=== PATIENT | female | born 2000 | race Caucasian/White ===

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

== ENCOUNTER 2022-09-30 18:02 | Emergency (ER) | payer OTHER, MEDICAID, SELFPAY ==
[2022-09-30 18:16] VITALS: BP 107/65; PULSE 76; RESP 18; TEMP 37; O2SAT 100; BMI 23.8
[2022-09-30 18:49] LABS: Bacteria Urine Moderate (10-30); RBC Urine 0-1/HPF (0-5/HPF); Squamous Epithelial Cell Urine 10-30 /HPF (0-5/HPF); Transitional Epi Cells Urine 1-5/HPF (0-5/HPF); WBC Urine 10-30/HPF (0-5/HPF)
--- NOTE | 2022-09-30 19:03 | ED_ITS ---
HPI - Female Genitourinary <VINNY Hawthorne - Last Filed: 09/30/22 19:52> General Chief complaint: Urogenital-Female Stated complaint: possible UTI/other infection Time Seen by Provider: 09/30/22 18:42 Source: patient Mode of arrival: Ambulatory History of Present Illness HPI Narrative: This is a 21-year-old female with history of in March 2022 who presents to the emergency department with 3 days of dysuria, urinary frequency and endorses abnormal vaginal discharge with a history of bacterial vaginosis. Endorses some vaginal itching, complains of symptoms that have been worsening since yesterday. No other urine cultures available on record here at this hospital, patient states that she has a history of UTIs, denies flank pain, fever, endorses nausea without vomiting, without chills, dizziness or other symptom. Related Data Previous Rx's Medication Instructions Recorded cephalexin 500 mg capsule 500 mg PO BID #10 caps 06/21/21 dicyclomine 10 mg capsule 10 mg PO BID #20 caps 11/19/21 sulfamethoxazole 800 1 tab PO BID #14 tabs 11/19/21 mg-trimethoprim 160 mg tablet (Bactrim DS) cephalexin 500 mg capsule 500 mg PO BID #10 caps 09/30/22 metronidazole 500 mg tablet 500 mg PO BID 7 days #14 tabs 09/30/22 phenazopyridine 100 mg tablet 100 mg PO QPC PRN pain 6 doses #7 09/30/22 (Pyridium) tabs Allergies Allergy/AdvReac Type Severity Reaction Status Date / Time No Known Drug Allergies Allergy Verified 09/30/22 18:29 Review of Systems <VINNY Hawthorne - Last Filed: 09/30/22 19:52> Review of Systems ROS Unobtainable: All systems reviewed & are unremarkable except as noted in HPI and below Patient History <VINNY Hawthorne - Last Filed: 09/30/22 19:52> tobacco type: vaping alcohol intake frequency: holidays/special occasions only Substance Use Type: marijuana Exam <VINNY Hawthorne - Last Filed: 09/30/22 19:52> Narrative Exam Narrative: Reviewed vitals signs and nursing notes. General: cooperative, comfortable, in no acute distress, well groomed HEENT: symmetrical facial expressions, moist mucous membranes GI: abdomen soft, nontender to palpation, nondistended, without masses, rebound tenderness or exquisite tenderness with exam. Pelvic exam, without rash, thick, white vaginal discharge, mild tenderness, suprapubic pressure and tenderness without handbook writer left ovarian tenderness on exam. MSK: moves all extremities, neurovascularly intact, no weakness, normal tone Skin: brisk capillary refill, without pallor or erythema Neuro: normal speech and cognition, A&O x3, ambulatory, clear speech Psych: mental status is grossly normal, congruent mood, normal affect, pleasant and cooperative Initial Vital Signs Initial Vital Signs: Vital Signs Temperature 98.6 F 09/30/22 18:16 Pulse Rate 76 09/30/22 18:16 Respiratory Rate 18 09/30/22 18:16 Blood Pressure 107/65 09/30/22 18:16 Pulse Oximetry 100 09/30/22 18:16 Oxygen Delivery Method 09/30/22 18:16 <Sergio Burris DO - Last Filed: 10/01/22 02:48> Initial Vital Signs Initial Vital Signs: Vital Signs Temperature 98.6 F 09/30/22 18:16 Pulse Rate 76 09/30/22 18:16 Respiratory Rate 18 09/30/22 18:16 Blood Pressure 107/65 09/30/22 18:16 Pulse Oximetry 100 09/30/22 18:16 Oxygen Delivery Method 09/30/22 18:16 Course <VINNY Hawthorne - Last Filed: 09/30/22 19:52> Orders Ordered: ED Orders 09/30/22 18:20 Chlamydia Gonorrhea PCR -URINE Stat Urine Culture Stat Urine Microscopic Stat 09/30/22 18:50 Wet Prep Tric BV Marsha Stat Discontinued Medications Acetaminophen (Acetaminophen 325 Mg Tablet) 650 mg PO NOW ONE Stop: 09/30/22 18:53 Last Admin: 09/30/22 19:10 Dose: 650 mg Documented By: CARMELO Ceftriaxone Sodium (Ceftriaxone 1,000 Mg Vial) 500 mg IM NOW ONE Stop: 09/30/22 18:53 Last Admin: 09/30/22 19:20 Dose: 500 mg Documented By: CARMELO Ibuprofen (Ibuprofen 400 Mg Tablet) 600 mg PO NOW ONE Stop: 09/30/22 18:53 Last Admin: 09/30/22 19:08 Dose: 600 mg Documented By: SB Lidocaine HCl (Lidocaine 1% (Pf) 5 Ml) 2.1 ml INJ NOW ONE Stop: 09/30/22 18:53 Last Admin: 09/30/22 19:21 Dose: Not Given Documented By: SB Metronidazole (Metronidazole 500 Mg Tablet) 500 mg PO NOW ONE Stop: 09/30/22 19:12 Last Admin: 09/30/22 19:20 Dose: 500 mg Documented By: SB Ondansetron HCl (Ondansetron 4 Mg Odt) 4 mg SL NOW ONE Stop: 09/30/22 18:53 Last Admin: 09/30/22 19:08 Dose: 4 mg Documented By: SB Phenazopyridine HCl (Phenazopyridine 100 Mg Tablet) 100 mg PO NOW ONE Stop: 09/30/22 18:53 Last Admin: 09/30/22 19:11 Dose: 100 mg Documented By: CARMELO Vital Signs Vital signs: Vital Signs - 8 hr 09/30/22 18:16 Temperature 98.6 F Pulse Rate 76 Respiratory Rate 18 Blood Pressure 107/65 Pulse Oximetry 100 Oxygen Delivery Method Room Air <Sergio Burris DO - Last Filed: 10/01/22 02:48> Orders Ordered: ED Orders 09/30/22 18:20 Chlamydia Gonorrhea PCR -URINE Stat Urine Culture Stat Urine Microscopic Stat 09/30/22 18:50 Wet Prep Tric BV Marsha Stat Discontinued Medications Acetaminophen (Acetaminophen 325 Mg Tablet) 650 mg PO NOW ONE Stop: 09/30/22 18:53 Last Admin: 09/30/22 19:10 Dose: 650 mg Documented By: CARMELO Ceftriaxone Sodium (Ceftriaxone 1,000 Mg Vial) 500 mg IM NOW ONE Stop: 09/30/22 18:53 Last Admin: 09/30/22 19:20 Dose: 500 mg Documented By: CARMELO Ibuprofen (Ibuprofen 400 Mg Tablet) 600 mg PO NOW ONE Stop: 09/30/22 18:53 Last Admin: 09/30/22 19:08 Dose: 600 mg Documented By: CARMELO Lidocaine HCl (Lidocaine 1% (Pf) 5 Ml) 2.1 ml INJ NOW ONE Stop: 09/30/22 18:53 Last Admin: 09/30/22 19:21 Dose: Not Given Documented By: CARMELO Metronidazole (Metronidazole 500 Mg Tablet) 500 mg PO NOW ONE Stop: 09/30/22 19:12 Last Admin: 09/30/22 19:20 Dose: 500 mg Documented By: CARMELO Ondansetron HCl (Ondansetron 4 Mg Odt) 4 mg SL NOW ONE Stop: 09/30/22 18:53 Last Admin: 09/30/22 19:08 Dose: 4 mg Documented By: CARMELO Phenazopyridine HCl (Phenazopyridine 100 Mg Tablet) 100 mg PO NOW ONE Stop: 09/30/22 18:53 Last Admin: 09/30/22 19:11 Dose: 100 mg Documented By: CARMELO Vital Signs Vital signs: Vital Signs - 8 hr 09/30/22 18:16 Temperature 98.6 F Pulse Rate 76 Respiratory Rate 18 Blood Pressure 107/65 Pulse Oximetry 100 Oxygen Delivery Method Room Air MDM - Female Genitourinary <VINNY Hawthorne - Last Filed: 09/30/22 19:52> Lab Data Lab results narrative: [facility] CLIA ID [id number] [address] [place] [address] RUN DATE: 09/30/22 Specimen Inquiry PAGE 1 RUN TIME: 1910 Name: Laurel Raphael Age/Sex: 21/F Attend Dr: Annie Sheridan Unit#: [id number] : 2000Location: ED Re09/30/22 Disch: Status: REG ER SPEC #: [id number] CELIO: 09/30/22 STATUS: COMP REQ #: [id number] SPDESC: RECD: 09/30/[address]: Annie Sheridan SOURCE: Vaginal ENTR: 09/30/[address] [facility] [address]: FAX TO: ORDERED: Wet Prep Procedure Result Verified Site Wet Prep Tric BV Marsha Final 09/30/22- 1908 White blood cells Few WBCs Clue cells: Few Yeast: None seen Trichomonas: None seen Labs: Lab Results 09/30/22 09/30/22 Range/Units 18:20 18:20 Urine RBC 0-1/hpf (0-5/HPF) Urine WBC 10-30/hpf H (0-5/HPF) Ur Squamous Epith Cells 10-30 /hpf H D (0-5/HPF) Ur Transition Epith Cell 1-5/hpf (0-5/HPF) Urine Bacteria Moderate (10-30) H (None) Ur Chlamydia DNA (PCR) Not detected N gonorrhoeae DNA (PCR) Not detected Point of Care Testing Test Results Negative Urine Dip Bedside Urine Glucose Negative Bedside Urine Bilirubin - Negative Bedside Urine Ketone +/- 5 Urine Specific [place] 1.030 Bedside Urine Occult Blood - Negative Bedside Urine pH 6.0 Bedside Urine Protein - Negative Bedside Urine Urobilinogen - Negative Bedside Urine Nitrite - Negative Bedside Urine Leukocytes + 70 Esterase MDM Narrative Medical decision making narrative: This is a 21-year-old female with history of in March 2022 who presents to the emergency department with 3 days of dysuria, urinary frequency and endorses abnormal vaginal discharge with a history of bacterial vaginosis. Differential diagnoses include, but are not limited to: STI/PID, appendicitis UTI, interstitial cystitis, bacterial vaginosis, retained foreign body, gonorrhea/chlamydia, ovarian torsion, yeast infection. Will follow urine culture results, encouraged tylenol/motrin for pain, hydration, and recheck with primary care provider if not improving within 2 days, and return to the emergency department for worsening symptoms, vomiting, fever and chills. Course of Care: Saw patient, complete a pelvic exam, likely bacterial vaginosis versus UTI or both with STI, she is without flank symptoms, fever, chills, or other systemic symptoms of illness. Awaiting wet mount and gonorrhea chlamydia, will treat with 500 mg of ceftriaxone IM and Pyridium for her symptoms. Patient's symptoms improved over duration of stay with above-stated therapies. Patient's wet prep came back positive for clue cells and WBCs. UA is positive for wbc's, moderate bacteria and patient does not have fever, flank pain, chills, vomiting and her symptoms have improved after medications. MIPS: This encounter doesn't have any diagnosis associated with MIPS criteria. Patient's urine is negative, low suspicion for ectopic Patient's UA is positive for moderate bacteria, WBCs, culture is pending, gonorrhea and chlamydia via PCR is still pending, wet mount is positive for WBCs and clue cells with abnormal vaginal discharge, urinary frequency and urgency with suprapubic pressure with dysuria. Will treat for acute cystitis and bacterial vaginosis, we will call patient if gonorrhea chlamydia is positive. Patient received 500 mg of IM ceftriaxone and will start cephalexin and Pyridium with Flagyl for her symptoms. Patient is well hydrated appearing, without tachycardia, fever, vomiting or other systemic symptom. Encourage patient to follow-up with her PCP for test of cure, stay hydrated, return to the emergency department for any worsening symptoms. Social determinants of health that may impact treatment or disposition: none Vital Signs: I, the ED provider, reviewed the patient?s vital signs, past medical records and encounters if available, and nursing notes. I have spoken with the patient/family and discussed today?s findings whom verbalize understanding. Counseling was provided regarding the diagnosis and prognosis, and specific details were provided for the plan of care. Questions are addressed and there is agreement with the plan and for follow-up. Patient is appropriate for outpatient management. Portions of this chart have been created with [employer] voice recognition software. Occasional wrong word or sound alike substitutions may have occurred due to the inherent limitations of this software. I, VINNY Esqueda, personally performed the services described in the documentation, and it accurately records my words and actions. I collaborated with the ED attending physician for HERMILO level 2, 3, and some level 4s as needed Electronically signed by: VINNY Esqueda <Sergio Burris, DO - Last Filed: 10/01/22 02:48> Lab Data Labs: Lab Results 09/30/22 09/30/22 Range/Units 18:20 18:20 Urine RBC 0-1/hpf (0-5/HPF) Urine WBC 10-30/hpf H (0-5/HPF) Ur Squamous Epith Cells 10-30 /hpf H D (0-5/HPF) Ur Transition Epith Cell 1-5/hpf (0-5/HPF) Urine Bacteria Moderate (10-30) H (None) Ur Chlamydia DNA (PCR) Not detected N gonorrhoeae DNA (PCR) Not detected Point of Care Testing Test Results Negative Urine Dip Bedside Urine Glucose Negative Bedside Urine Bilirubin - Negative Bedside Urine Ketone +/- 5 Urine Specific [place] 1.030 Bedside Urine Occult Blood - Negative Bedside Urine pH 6.0 Bedside Urine Protein - Negative Bedside Urine Urobilinogen - Negative Bedside Urine Nitrite - Negative Bedside Urine Leukocytes + 70 Esterase Discharge Plan Departure Patient Disposition: Home Clinical Impression: Urinary tract infection, Bacterial vaginosis Instructions: Bacterial Vaginosis, DI for Urinary Tract Infection (UTI) Activity Restrictions/Additional Instructions: *You have been diagnosed with bladder infection, bacterial vaginosis, and gonorrhea and chlamydia still pending but we will call you if that is positive and add another antibiotic. Please take 1 tab of the cephalexin when you get to the pharmacy, you may take another Pyridium, that will help you with your bladder pain. Please take all medications as prescribed, follow up with your primary care provider for a test of cure. Stay hydrated, avoid intercourse for at least 3 days, I hope you feel better soon, please return for new or worsening symptoms, vomiting, chills, or other complication. It was a pleasure to meet you, have a nice night. I accidentally called into copies of cephalexin antibiotic, please take only 1 5 day course, Flagyl is for bacterial vaginosis, we will call you if the gonorrhea and chlamydia are positive. *What to do: *Please continue to take your regular medications as directed. x ] New medication prescriptions sent to your pharmacy: [ [facility]] [ ] New medication written as a paper prescription [ ] No new medications given *Please follow up with your primary care provider in 2-3 days, call for an appointment. Let them know you were seen in the Emergency Department and that we asked that you be seen for follow-up. We will electronically transmit a record of today's note if your PCP is in our system *If you do not have a primary care provider please contact [phone] to establish care with one of [facility] primary care providers. *Return to Emergency Department if you should have any new, worsening, or concerning symptoms, such as [fever greater than 101F, chills, worsening pain, persistent vomiting or other bothersome symptoms]. Prescriptions: New phenazopyridine [Pyridium] 100 mg tablet 100 mg PO QPC PRN (Reason: pain) Qty: 7 0RF metronidazole 500 mg tablet 500 mg PO BID 7 Days Qty: 14 0RF cephalexin 500 mg capsule 500 mg PO BID Qty: 10 0RF No Action dicyclomine 10 mg capsule 10 mg PO BID Qty: 20 0RF sulfamethoxazole-trimethoprim [Bactrim DS] 800-160 mg tablet 1 tab PO BID Qty: 14 0RF cephalexin 500 mg capsule 500 mg PO BID Qty: 10 0RF Referrals: Walchenbach,Raegan A, ANIMATION DIRECTOR [Non-Staff] - Stand Alone Forms: Patient Portal/API <Sergio Burris DO - Last Filed: 10/01/22 02:48> Cosign ED Attending Gail Attestation: I was immediately available in the department for consultation. Documentation has been reviewed. I agree with assessment and plan.
[2022-09-30] MEDS: IBUPROFEN 400 MG TABLET 600 MG PO (19:08)
[2022-09-30] MEDS: ONDANSETRON 4 MG ODT SL (19:08)
[2022-09-30] MEDS: ACETAMINOPHEN 325 MG TABLET 650 MG PO (19:10)
[2022-09-30] MEDS: PHENAZOPYRIDINE 100 MG TABLET PO (19:11)
[2022-09-30] MEDS: metroNIDAZOLE 500 MG TABLET PO (19:20)
[2022-09-30] MEDS: cefTRIAXone 1,000 MG VIAL 500 MG IM (19:20)
--- NOTE | 2022-09-30 19:21 | PC.NURSE ---
Addendum entered by Kimberly Mcmanus R.N. 09/30/22 19:42: attempted to call [facility] to rewrite order. [facility] not calling back. Provider aware. Original Note: Lido 1% not available. Admin ceftriaxone with 2% Lido per verbal order of provider.
[2022-09-30 20:08] LABS: Urine N gonorrhoeae NOT DETECTED
[2022-09-30 20:16] LABS: Urine Chlamydia NOT DETECTED
== END 2022-09-30 19:41 | disposition home or self-care (01) ==
PROVIDERS: Emergency Medicine; Emergency Provider Nurse Practitioner Critical Care Medicine
DX: N39.0 Urinary tract infection, site not specified (principal); N76.0 Acute vaginitis
CPT/HCPCS: 81003; 81015; 81025; 87086; 87147; 87210; 87491; 87591; 96372; 99283; J0696

== ENCOUNTER 2022-10-20 22:12 | Emergency (ER) | payer OTHER, MEDICAID, SELFPAY ==
[2022-10-20 22:22] VITALS: BP 122/60; PULSE 103; RESP 16; TEMP 37.3; O2SAT 98; BMI 24.3
[2022-10-20 22:55] LABS: Bacteria Urine Occasional (0-1); RBC Urine 0-1/HPF (0-5/HPF); Squamous Epithelial Cell Urine 1-5 /HPF (0-5/HPF); WBC Urine 10-30/HPF (0-5/HPF)
[2022-10-20 22:56] LABS: Culture Indicated Urine Specimen Cultured
--- NOTE | 2022-10-20 23:28 | ED.GENADULT ---
HPI - General Adult General Chief complaint: Urogenital-Female Stated complaint: UTI Time Seen by Provider: 10/20/22 22:36 Source: patient Mode of arrival: Ambulatory Limitations: no limitations History of Present Illness HPI narrative: Patient is a 21-year-old female who was seen here in the emergency department a couple days ago for UTI like symptoms. She was treated presumptively for gonorrhea and chlamydia. She was also treated for bacterial vaginosis. She was given antibiotics for urinary tract infection as well. She stated that her symptoms did improve but not completely resolve. Since her visit here in the emergency department she was seen by her primary doctor's office. She developed a yeast infection and was given medications for this. She is since completed all antibiotics and treatment for yeast infection. She returns to emergency department today with increased urgency, frequency and lower back discomfort. No fevers. No vomiting. No rashes. No vaginal bleeding. She did have sexual intercourse last week. She stated that she felt like her symptoms improved but not completely resolved and have been worsening. She has had issues with multiple urinary tract infections in the past. She is not seen urology. Related Data Previous Rx's Medication Instructions Recorded cephalexin 500 mg capsule 500 mg PO BID #10 caps 06/21/21 dicyclomine 10 mg capsule 10 mg PO BID #20 caps 11/19/21 sulfamethoxazole 800 1 tab PO BID #14 tabs 11/19/21 mg-trimethoprim 160 mg tablet (Bactrim DS) cephalexin 500 mg capsule 500 mg PO BID #10 caps 09/30/22 phenazopyridine 100 mg tablet 100 mg PO QPC PRN pain 6 doses #7 09/30/22 (Pyridium) tabs fluconazole 150 mg tablet 150 mg PO DAILY #2 tabs 10/21/22 (Diflucan) phenazopyridine 100 mg tablet 100 mg PO TID PRN pain 6 doses #6 10/21/22 (Pyridium) tabs sulfamethoxazole 800 1 tab PO BID 3 days #6 tabs 10/21/22 mg-trimethoprim 160 mg tablet (Bactrim DS) Allergies Allergy/AdvReac Type Severity Reaction Status Date / Time No Known Drug Allergies Allergy Verified 09/30/22 18:29 Review of Systems Gastrointestinal Gastrointestinal: Reports system reviewed and no additional complaints, except as documented Genitourinary Genitourinary: Reports system reviewed and no additional complaints, except as documented Musculoskeletal Musculoskeletal: Reports system reviewed and no additional complaints, except as documented Hematologic/Lymphatic On Anticoagulants: No Patient History Social History Smoking Status: Current some day smoker Smoking Status: Current some day smoker tobacco type: vaping alcohol intake frequency: holidays/special occasions only Substance Use Type: marijuana Exam Initial Vital Signs Initial Vital Signs: Vital Signs Temperature 99.1 F 10/20/22 22:22 Pulse Rate 103 H 10/20/22 22:22 Respiratory Rate 16 10/20/22 22:22 Blood Pressure 122/60 10/20/22 22:22 Pulse Oximetry 98 10/20/22 22:22 Oxygen Delivery Method 10/20/22 22:22 HENMT Head: normal to inspection and normocephalic Resp Effort & Inspection: normal respiratory effort Cardio Rate: regular rate GI Inspection: non-distended Neuro General: patient alert, patient awake, patient oriented x3 and moves all extremities Course Orders Ordered: ED Orders 10/20/22 22:35 Chlamydia Gonorrhea PCR -URINE Stat Urine Culture Stat Urine Microscopic Stat Discontinued Medications Phenazopyridine HCl (Phenazopyridine 100 Mg Tablet) 100 mg PO NOW ONE Stop: 10/20/22 23:30 Last Admin: 10/20/22 23:40 Dose: 100 mg Documented By: BOBBY Trimethoprim/Sulfamethoxazole (Trimeth/Sulfa 160/800 (Ds) Tablet) 1 tab PO NOW ONE Stop: 10/20/22 23:30 Last Admin: 10/20/22 23:40 Dose: 1 tab Documented By: BOBBY Vital Signs Vital signs: Vital Signs - 8 hr 10/20/22 22:22 10/21/22 00:19 Temperature 99.1 F 98.4 F Pulse Rate 103 H 91 H Respiratory Rate 16 18 Blood Pressure 122/60 114/63 Pulse Oximetry 98 97 Oxygen Delivery Method Room Air Room Air Medical Decision Making Differential Diagnosis Differential Diagnosis: UTI, pyelo, STI, bacterial vaginosis, cystitis, yeast infection and others Medical Records Medical records reviewed: Yes I reviewed the patient's medical records. Lab Data Lab results reviewed: Yes I reviewed the patient's lab results. Labs: Lab Results 10/20/22 10/20/22 Range/Units 22:35 22:35 Urine RBC 0-1/hpf (0-5/HPF) Urine WBC 10-30/hpf H (0-5/HPF) Ur Squamous Epith Cells 1-5 /hpf D (0-5/HPF) Urine Bacteria Occasional (0-1) (None) Ur Culture Indicated? Specimen cultured Ur Chlamydia DNA (PCR) Not detected N gonorrhoeae DNA (PCR) Not detected Point of Care Testing Test Results Negative Urine Dip Bedside Urine Glucose Negative Bedside Urine Bilirubin - Negative Bedside Urine Ketone - Negative Urine Specific [place] 1.03 Bedside Urine Occult Blood - Negative Bedside Urine pH 6.0 Bedside Urine Protein +/- 15 Bedside Urine Urobilinogen - Negative Bedside Urine Nitrite - Negative Bedside Urine Leukocytes + 70 Esterase Point of care testing: Point of Care Testing Test Results Negative Urine Dip Bedside Urine Glucose Negative Bedside Urine Bilirubin - Negative Bedside Urine Ketone - Negative Urine Specific [place] 1.03 Bedside Urine Occult Blood - Negative Bedside Urine pH 6.0 Bedside Urine Protein +/- 15 Bedside Urine Urobilinogen - Negative Bedside Urine Nitrite - Negative Bedside Urine Leukocytes + 70 Esterase MDM Narrative Medical decision making narrative: Patient does have symptoms today that are consistent with a urinary tract infection. Physical exam is not consistent with pyelonephritis. For review of the culture from her last visit shows group B strep. Her gonorrhea and chlamydia today are negative. She did have bacterial vaginosis during her prior visit but this has been treated. I would a discussion with the patient regarding her symptoms. We did discuss her prior urine culture showing a bacteria that could potentially just be normal anika not necessarily related to an infection. She states that this type of situation has happened to her in the past where she is needed multiple courses of antibiotics before her symptoms improved. A culture was obtained today. The patient realizes that this is pending at the time of discharge and we will contact her if we need to change any antibiotics. Since she was on Keflex during her last visit we will switch her to Bactrim today. She was given a dose here in the ER and was given prescription for Bactrim. This was printed as she is going out of town tomorrow. She was also given a prescription for Pyridium. This has worked for her in the past. I also gave her a prescription for Diflucan that she can take if she starts to have yeast infection symptoms. I did advise her that she should talk with her primary doctor about potentially getting a referral to see Urology given her symptoms. She was given return precautions. She expressed understanding and agreement with this plan. Discharge Plan Departure Patient Disposition: Home Clinical Impression: Urinary tract infection Instructions: DI for Urinary Tract Infection (UTI) Activity Restrictions/Additional Instructions: A urine culture was pending today at the time of your discharge. If for some reason we need to change antibiotics we will contact you. Your having frequent urinary tract infections. I would recommend that you talk with your primary doctor about the indications for referral to see Urology. Use the Diflucan as directed as well. Return to the emergency department for new symptoms. Prescriptions: New phenazopyridine [Pyridium] 100 mg tablet 100 mg PO TID PRN (Reason: pain) Qty: 6 0RF sulfamethoxazole-trimethoprim [Bactrim DS] 800-160 mg tablet 1 tab PO BID 3 Days Qty: 6 0RF fluconazole [Diflucan] 150 mg tablet 150 mg PO DAILY Qty: 2 0RF Rx Instructions: use as directed No Action dicyclomine 10 mg capsule 10 mg PO BID Qty: 20 0RF sulfamethoxazole-trimethoprim [Bactrim DS] 800-160 mg tablet 1 tab PO BID Qty: 14 0RF phenazopyridine [Pyridium] 100 mg tablet 100 mg PO QPC PRN (Reason: pain) Qty: 7 0RF cephalexin 500 mg capsule 500 mg PO BID Qty: 10 0RF cephalexin 500 mg capsule 500 mg PO BID Qty: 10 0RF Stand Alone Forms: Patient Portal/API
[2022-10-20] MEDS: TRIMETH/SULFA 160/800 (DS) TABLET 1 TAB PO (23:40)
[2022-10-20] MEDS: PHENAZOPYRIDINE 100 MG TABLET PO (23:40)
[2022-10-21 00:15] LABS: Urine N gonorrhoeae NOT DETECTED
[2022-10-21 00:19] VITALS: BP 114/63; PULSE 91; RESP 18; TEMP 36.9; O2SAT 97
[2022-10-21 00:19] LABS: Urine Chlamydia NOT DETECTED
== END 2022-10-21 00:29 | disposition home or self-care (01) ==
PROVIDERS: Emergency Provider Emergency Medicine
DX: N39.0 Urinary tract infection, site not specified (principal)
CPT/HCPCS: 81003; 81015; 81025; 87086; 87491; 87591; 99283

== ENCOUNTER 2022-12-07 13:40 | Emergency (ER) | payer OTHER, MEDICAID, SELFPAY ==
[2022-12-07 13:53] VITALS: BP 130/59; PULSE 76; RESP 18; TEMP 37.2; O2SAT 99; BMI 23.6
[2022-12-07 14:20] LABS: RBC Urine None Seen (0-5/HPF); Squamous Epithelial Cell Urine 10-30 /HPF (0-5/HPF); WBC Urine None Seen (0-5/HPF)
[2022-12-07 14:21] LABS: Bacteria Urine None Seen; Culture Indicated Urine Cult Not Indicated
--- NOTE | 2022-12-07 14:38 | ED_ITS ---
HPI - Female Genitourinary <VINNY Hawthorne - Last Filed: 12/07/22 16:31> General Chief complaint: Urogenital-Female Stated complaint: pelvic inflammatory disease pain,nausea Time Seen by Provider: 12/07/22 14:27 Source: patient Mode of arrival: Ambulatory History of Present Illness HPI Narrative: This is a 22-year-old female with history x1, recent chlamydia with treatment on doxycycline in October 2022 who comes in complaining of right inguinal pain, abnormal vaginal discharge that is reddish brown colored, for the last few days. States that she has had vomiting x1, nausea, without back pain, without urinary frequency or urgency. She is currently on medications. States that she followed up with her primary care provider had a tests of cure after her chlamydia treatment and this was negative. She is concerned about PID. She states her last menstrual cycle was October 11 but states that she is had intermittent bleeding on and off up to 3 times a month over the last 2 months. She is not currently on control. Related Data Previous Rx's Medication Instructions Recorded metronidazole 500 mg tablet 500 mg PO BID 8 days #16 tabs 12/07/22 omeprazole 40 mg capsule,delayed 40 mg PO DAILY #30 caps 12/07/22 release Allergies Allergy/AdvReac Type Severity Reaction Status Date / Time No Known Drug Allergies Allergy Verified 12/07/22 13:57 Review of Systems <VINNY Hawthorne - Last Filed: 12/07/22 16:31> Review of Systems ROS Unobtainable: All systems reviewed & are unremarkable except as noted in HPI and below Patient History <VINNY Hawthorne - Last Filed: 12/07/22 16:31> tobacco type: vaping alcohol intake frequency: holidays/special occasions only Substance Use Type: marijuana Exam <VINNY Hawthorne - Last Filed: 12/07/22 16:31> Narrative Exam Narrative: Reviewed vitals signs and nursing notes. General: cooperative, in no acute distress, well groomed HEENT: symmetrical facial expressions, moist mucous membranes, neck is supple CV: regular rate and rhythm, warm extremities Respiratory: Without abnormal breath sounds, normal work of breathing, without tachypnea, hypoxia. GI: abdomen soft, nontender to palpation in all quadrants, nondistended, without masses, rebound tenderness or CVA tenderness bilaterally. 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, vaginal discharge is reddish brown in color, appears to be menstr ual related, no tenderness over left or right ovaries, no adnexal tenderness on exam, no external wounds or erythema MSK: moves all extremities, neurovascularly intact, no weakness, normal tone Skin: brisk capillary refill, without rash or wound Neuro: normal speech and cognition, A&O x3, ambulatory, clear speech Initial Vital Signs Initial Vital Signs: Vital Signs Temperature 98.9 F 12/07/22 13:53 Pulse Rate 76 12/07/22 13:53 Respiratory Rate 18 12/07/22 13:53 Blood Pressure 130/59 L 12/07/22 13:53 Pulse Oximetry 99 12/07/22 13:53 Oxygen Delivery Method Room Air 12/07/22 13:53 <Liza Bean DO - Last Filed: 12/09/22 12:41> Initial Vital Signs Initial Vital Signs: Vital Signs Temperature 98.9 F 12/07/22 13:53 Pulse Rate 76 12/07/22 13:53 Respiratory Rate 18 12/07/22 13:53 Blood Pressure 130/59 L 12/07/22 13:53 Pulse Oximetry 99 12/07/22 13:53 Oxygen Delivery Method Room Air 12/07/22 13:53 Course <VINNY Hawthorne - Last Filed: 12/07/22 16:31> Orders Ordered: Discontinued Medications Ketorolac Tromethamine (Ketorolac 30 Mg/Ml Vial) 15 mg IM NOW ONE Stop: 12/07/22 16:26 Last Admin: 12/07/22 16:33 Dose: Not Given Documented By: AT Metronidazole (Metronidazole 500 Mg Tablet) 500 mg PO NOW ONE Stop: 12/07/22 15:09 Last Admin: 12/07/22 16:34 Dose: 500 mg Documented By: AT Ondansetron HCl (Ondansetron 4 Mg Odt) 4 mg SL NOW ONE Stop: 12/07/22 16:20 Last Admin: 12/07/22 16:33 Dose: Not Given Documented By: AT Pantoprazole Sodium (Pantoprazole Dr 20 Mg Tablet) 20 mg PO NOW ONE Stop: 12/07/22 16:26 Last Admin: 12/07/22 16:33 Dose: 20 mg Documented By: AT Vital Signs Vital signs: Vital Signs - 8 hr 12/07/22 13:53 Temperature 98.9 F Pulse Rate 76 Respiratory Rate 18 Blood Pressure 130/59 L Pulse Oximetry 99 Oxygen Delivery Method Room Air <Liza Bean DO - Last Filed: 12/09/22 12:41> Orders Ordered: Discontinued Medications Ketorolac Tromethamine (Ketorolac 30 Mg/Ml Vial) 15 mg IM NOW ONE Stop: 12/07/22 16:26 Last Admin: 12/07/22 16:33 Dose: Not Given Documented By: AT Metronidazole (Metronidazole 500 Mg Tablet) 500 mg PO NOW ONE Stop: 12/07/22 15:09 Last Admin: 12/07/22 16:34 Dose: 500 mg Documented By: AT Ondansetron HCl (Ondansetron 4 Mg Odt) 4 mg SL NOW ONE Stop: 12/07/22 16:20 Last Admin: 12/07/22 16:33 Dose: Not Given Documented By: AT Pantoprazole Sodium (Pantoprazole Dr 20 Mg Tablet) 20 mg PO NOW ONE Stop: 12/07/22 16:26 Last Admin: 12/07/22 16:33 Dose: 20 mg Documented By: AT Vital Signs Vital signs: Vital Signs - 8 hr 12/07/22 13:53 Temperature 98.9 F Pulse Rate 76 Respiratory Rate 18 Blood Pressure 130/59 L Pulse Oximetry 99 Oxygen Delivery Method Room Air MDM - Female Genitourinary <VINNY Hawthorne - Last Filed: 12/07/22 16:31> Lab Data Lab results narrative: [facility] CLIA ID [id number] [address] [place] [address], [id number] RUN DATE: 12/07/22 Specimen Inquiry PAGE 1 RUN TIME: 8546 Name: Donavon,Laurel Sotelo Age/Sex: 22/F Attend Dr: Annie Sheridan Unit#: [id number] : 2000Location: ED Re12/07/22 Disch: Status: REG ER SPEC #: [id number] CELIO: 12/07/22-1430 STATUS: COMP REQ #: [id number] SPDESC: RECD: 12/07/22-[address]: Annie Sheridan SOURCE: Vaginal ENTR: 12/07/22-[address]: Raegan Small FAX TO: ORDERED: Wet Prep Procedure Result Verified Site Wet Prep Tric BV Marsha Final 12/07/22- 1506 White blood cells Occasional WBC seen Clue cells: None seen Yeast: None seen Trichomonas: None seen Labs: Lab Results 12/07/22 12/07/22 Range/Units 14:00 14:00 Urine RBC None seen (0-5/HPF) Urine WBC None seen (0-5/HPF) Ur Squamous Epith Cells 10-30 /hpf H D (0-5/HPF) Urine Bacteria None seen (None) Ur Culture Indicated? Cult not indicated Ur Chlamydia DNA (PCR) Not detected N gonorrhoeae DNA (PCR) Not detected Point of Care Testing Test Results Negative Urine Dip Bedside Urine Glucose Negative Bedside Urine Bilirubin - Negative Bedside Urine Ketone - Negative Urine Specific Bode 1.010 Bedside Urine Occult Blood +++ Bedside Urine pH 7 Bedside Urine Urobilinogen - Negative Bedside Urine Nitrite - Negative Bedside Urine Leukocytes - Negative Esterase MDM Narrative Medical decision making narrative: Chief Complaint: Independent historian: Patient Differential diagnoses include but are not limited to: Menstrual bleeding, acute cystitis, pyelonephritis, dehydration, vaginitis, lumbar radiculopathy, painful bladder syndrome, urethritis, diverticulitis/colitis, perforated viscus, ovarian cyst/torsion, ectopic , STI including chlamydia/gonorrhea I have independently reviewed the patient's vital signs and nursing notes as well as prior records if available. Pertinent lab findings reviewed: Wet mount is positive for wbc's Gonorrhea and chlamydia Patient's urine microscopy shows moderate amount of vaginal discharge contaminant, no RBCs or WBCs, pending urine gonorrhea/chlamydia/wet mount Urine gonorrhea and chlamydia PCR is negative, wet mount shows WBCs. Will treat for bacterial vaginosis, patient complains of epigastric pain with heartburn, indigestion, and has a history of smoking marijuana. Discussed this could be G ERD, gastric ulcer, gastritis. Encouraged her to start taking omeprazole daily, use Tums and or Pepto-Bismol as needed, avoid smoking, avoid ibuprofen, avoid spicy and acidic foods and follow up with primary care if this is ongoing. She was prescribed omeprazole 40 mg daily for this. She was also prescribed Flagyl 500 mg b.i.d. x8 days for vaginitis. Social considerations that may affect disposition: none Questions are addressed and there is agreement with the plan and for follow-up. Patient is appropriate for outpatient management. MIPS: This encounter doesn't have any diagnosis' associated with MIPS criteria. <Liza Bean, DO - Last Filed: 12/09/22 12:41> Lab Data Labs: Lab Results 12/07/22 12/07/22 Range/Units 14:00 14:00 Urine RBC None seen (0-5/HPF) Urine WBC None seen (0-5/HPF) Ur Squamous Epith Cells 10-30 /hpf H D (0-5/HPF) Urine Bacteria None seen (None) Ur Culture Indicated? Cult not indicated Ur Chlamydia DNA (PCR) Not detected N gonorrhoeae DNA (PCR) Not detected Point of Care Testing Test Results Negative Urine Dip Bedside Urine Glucose Negative Bedside Urine Bilirubin - Negative Bedside Urine Ketone - Negative Urine Specific Bode 1.010 Bedside Urine Occult Blood +++ Bedside Urine pH 7 Bedside Urine Urobilinogen - Negative Bedside Urine Nitrite - Negative Bedside Urine Leukocytes - Negative Esterase Discharge Plan Departure Patient Disposition: Home Clinical Impression: Bacterial vaginosis Instructions: Bacterial Vaginosis, DI for Epigastric Pain, GERD Diet Activity Restrictions/Additional Instructions: *You have been diagnosed with epigastric pain which is most likely related to either gastric ulcer, gastritis, or GERD. Your lower abdominal pain is most likely related to bacterial vaginosis, your wet mount was negative for Trichomonas, the gonorrhea and chlamydia test was negative. Does not appear that you have a urinary tract infection today. Please start taking omeprazole daily, it is okay to take Tums or Pepto-Bismol as needed, avoid ibuprofen on an empty stomach. Please stay hydrated, avoid smoking and acidic, spicy, caffeinated foods. Follow up with your regular doctor for recheck. Your test was negative today. I hope you start feeling better soon. *What to do: *Please continue to take your regular medications as directed. [ x] New medication prescriptions sent to your pharmacy: [ [facility] [place]] [ ] New medication written as a paper prescription [ ] No new medications given *Please follow up with your primary care provider in 2-3 days, call for an appointment. Let them know you were seen in the Emergency Department and that we asked that you be seen for follow-up. We will electronically transmit a record of today's note if your PCP is in our system *If you do not have a primary care provider please contact [phone] to establish care with one of the [facility] primary care providers. *Return to Emergency Department if you should have any new, worsening, or concerning symptoms, such as [fever greater than 101F, chills, worsening pain, persistent vomiting or other bothersome symptoms]. Prescriptions: New omeprazole 40 mg capsule,delayed release(DR/EC) 40 mg PO DAILY Qty: 30 0RF metronidazole 500 mg tablet 500 mg PO BID 8 Days Qty: 16 0RF Referrals: Raegan Small ARNP [Primary Care Provider] - Stand Alone Forms: Patient Portal/API <Liza Bean DO - Last Filed: 12/09/22 12:41> Cosign ED Attending Cosbernadetteature Attestation: I was immediately available in the department for consultation. Supervised by Liza Bean DO
[2022-12-07 16:26] LABS: Urine Chlamydia NOT DETECTED; Urine N gonorrhoeae NOT DETECTED
[2022-12-07] MEDS: PANTOPRAZOLE DR 20 MG TABLET PO (16:33)
[2022-12-07] MEDS: metroNIDAZOLE 500 MG TABLET PO (16:34)
[2022-12-07 16:38] VITALS: BP 97/71; PULSE 67; RESP 18; O2SAT 99
== END 2022-12-07 16:38 | disposition home or self-care (01) ==
PROVIDERS: Emergency Medicine; Emergency Provider Nurse Practitioner Critical Care Medicine; PCP Nurse Practitioner Family
DX: N76.0 Acute vaginitis (principal)
CPT/HCPCS: 81003; 81015; 81025; 87210; 87491; 87591; 96372; 99283

== ENCOUNTER 2022-12-16 14:04 | Emergency (ER) | payer OTHER, MEDICAID, SELFPAY ==
[2022-12-16 14:17] VITALS: BP 113/72; PULSE 99; RESP 16; TEMP 37.3; O2SAT 98; BMI 23.8
[2022-12-16 14:20] VITALS: PULSE 94; O2SAT 99
--- NOTE | 2022-12-16 14:28 | PC.NURSE ---
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 for the last week she has been feeling sick with intermittent periods of feeling better. c/o pain in her back, stomach, down her legs, SOB its hard to breathe, weakness, dizzy upon standing, and chills. denies vomiting, cough, runny nose and fevers. able to tolerate things by mouth but been eating less since she doesnt feel good. pt states she has been taking over the counter wal-dryl and zofran for her nausea.
[2022-12-16 14:30] VITALS: BP 106/63; PULSE 87; O2SAT 99
--- NOTE | 2022-12-16 14:47 | ED.NAVMDI ---
HPI - Nausea/Vomiting/Diarrhea <Wilda King PA-C - Last Filed: 12/18/22 10:41> General Chief complaint: Nausea/Vomiting/Diarrhea Stated complaint: body aches, nausea, diarrhea,SOBworsening last day Time Seen by Provider: 12/16/22 14:17 Mode of arrival: Ambulatory History of Present Illness HPI Narrative: Patient is a 22-year-old female presenting for evaluation of onset of abdominal and back pain starting last night and worsening today. She was treated in [place] for PID back in October. 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 She was also seen in the emergency department on December 07 and treated for bacterial vaginosis and reflux. She says she is continuing her metronidazole dose when she felt some back pain and generalized abdominal pain starting yesterday. She says that this morning when she woke, she felt nausea and generalized abdominal pain. She says that she had diarrhea 6 times today which she describes as watery. She denies any upper respiratory symptoms such as sore throat, runny nose, headache or cough. She denies fever, but does report some chills and hot flashes. She reports taking 4 mg of her dad Zofran before 10:00 a.m.. today. She says the pain is in her upper belly in her upper back moving down to her lower back. She denies any pain with urination or frequency. She says she is not certain when her last menstrual period was she denies using control, but denies sexual activity recently. She reports some occasional stabbing pains around her urethra which is unrelated to when she urinates and only occasionally occur. Of note, she denies abdominal operations other than a groin hernia repair when she was a child. Related Data Previous Rx's Medication Instructions Recorded omeprazole 40 mg capsule,delayed 40 mg PO DAILY #30 caps 12/07/22 release naproxen 250 mg tablet 250 mg PO BID PRN pain #10 tabs 12/16/22 ondansetron 4 mg disintegrating 4 mg PO Q8H PRN nausea and 12/16/22 tablet vomiting #12 tabs Allergies Allergy/AdvReac Type Severity Reaction Status Date / Time No Known Drug Allergies Allergy Verified 12/07/22 13:57 Review of Systems <Wilda King PA-C - Last Filed: 12/18/22 10:41> Review of Systems Narrative: Per HPI Patient History <Wilda King PA-C - Last Filed: 12/18/22 10:41> Social History Smoking Status: Current some day smoker Smoking Status: Current some day smoker tobacco type: vaping alcohol intake frequency: holidays/special occasions only Substance Use Type: marijuana Exam <Wilda King PA-C - Last Filed: 12/18/22 10:41> Narrative Exam Narrative: GENERAL: 22 year old patient appears stated age. Well-developed patient, in no acute distress. HEAD: Atraumatic. Normocephalic. EYES: Pupils equal round and reactive. Extraocular motions intact. No scleral icterus. No injection or drainage. ENT: Nose without bleeding, purulent drainage. Throat without erythema, tonsillar hypertrophy or exudate. Airway patent. TMs pearly fitch with good COL, Nontender to mastoid, tragus or pinna palpation. NECK: Trachea midline. Non tender. No cervical lymphadenopathy CARDIOVASCULAR: Regular rate and rhythm without murmurs, gallops, or rubs. RESPIRATORY: Clear to auscultation. Breath sounds equal bilaterally. No wheezes, rales, or rhonchi. GASTROINTESTINAL: Bowel sounds x4, tympanic to percussion x4 Abdomen soft, acute tenderness throughout all 4 quadrants, no CVA tenderness EXTREMITIES: No edema or joint tenderness. BACK: Nontender without deformity or crepitance. No flank tenderness. Tenderness over the lower back NEURO: AOx3. SKIN: No rash or erythema of visible areas Initial Vital Signs Initial Vital Signs: Vital Signs Temperature 99.2 F 12/16/22 14:17 Pulse Rate 99 H 12/16/22 14:17 Respiratory Rate 16 12/16/22 14:17 Blood Pressure 113/72 12/16/22 14:17 Pulse Oximetry 98 12/16/22 14:17 Oxygen Delivery Method Room Air 12/16/22 14:17 <Mily Smith DO - Last Filed: 12/20/22 07:02> Initial Vital Signs Initial Vital Signs: Vital Signs Temperature 99.2 F 12/16/22 14:17 Pulse Rate 99 H 12/16/22 14:17 Respiratory Rate 16 12/16/22 14:17 Blood Pressure 113/72 12/16/22 14:17 Pulse Oximetry 98 12/16/22 14:17 Oxygen Delivery Method Room Air 12/16/22 14:17 Course <Wilda King PA-C - Last Filed: 12/18/22 10:41> Orders Ordered: Discontinued Medications Sodium Chloride (Normal Saline 0.9%) 1,000 mls @ 1,000 mls/hr IV BOLUS ONE Stop: 12/16/22 16:04 Last Infusion: 12/16/22 17:17 Dose: 0 mls/hr Documented By: Admin: 12/16/22 15:46 Dose: 1,000 mls/hr Documented By: CHANEL Ketorolac Tromethamine (Ketorolac 30 Mg/Ml Vial) 15 mg IV NOW ONE Stop: 12/16/22 15:27 Last Admin: 12/16/22 15:46 Dose: 15 mg Documented By: CHANEL Ondansetron HCl (Ondansetron 4 Mg Odt) 4 mg SL NOW ONE Stop: 12/16/22 14:52 Last Admin: 12/16/22 14:59 Dose: 4 mg Documented By: NR Vital Signs Vital signs: Vital Signs - 8 hr 12/16/22 14:17 12/16/22 14:20 12/16/22 14:30 Temperature 99.2 F Pulse Rate 99 H 94 H Respiratory Rate 16 Blood Pressure 113/72 106/63 Pulse Oximetry 98 99 Oxygen Delivery Method Room Air 12/16/22 14:30 12/16/22 15:00 12/16/22 15:30 Temperature Pulse Rate 87 92 H Respiratory Rate Blood Pressure Pulse Oximetry 99 98 100 Oxygen Delivery Method 12/16/22 16:56 12/16/22 16:56 Temperature Pulse Rate 85 Respiratory Rate Blood Pressure 107/58 L Pulse Oximetry 100 Oxygen Delivery Method <Mily Smith DO - Last Filed: 12/20/22 07:02> Orders Ordered: Discontinued Medications Sodium Chloride (Normal Saline 0.9%) 1,000 mls @ 1,000 mls/hr IV BOLUS ONE Stop: 12/16/22 16:04 Last Infusion: 12/16/22 17:17 Dose: 0 mls/hr Documented By: [facility] Admin: 12/16/22 15:46 Dose: 1,000 mls/hr Documented By: CTS Ketorolac Tromethamine (Ketorolac 30 Mg/Ml Vial) 15 mg IV NOW ONE Stop: 12/16/22 15:27 Last Admin: 12/16/22 15:46 Dose: 15 mg Documented By: CHANEL Ondansetron HCl (Ondansetron 4 Mg Odt) 4 mg SL NOW ONE Stop: 12/16/22 14:52 Last Admin: 12/16/22 14:59 Dose: 4 mg Documented By: NR Vital Signs Vital signs: Vital Signs - 8 hr 12/16/22 14:17 12/16/22 14:20 12/16/22 14:30 Temperature 99.2 F Pulse Rate 99 H 94 H Respiratory Rate 16 Blood Pressure 113/72 106/63 Pulse Oximetry 98 99 Oxygen Delivery Method Room Air 12/16/22 14:30 12/16/22 15:00 12/16/22 15:30 Temperature Pulse Rate 87 92 H Respiratory Rate Blood Pressure Pulse Oximetry 99 98 100 Oxygen Delivery Method 12/16/22 16:56 12/16/22 16:56 Temperature Pulse Rate 85 Respiratory Rate Blood Pressure 107/58 L Pulse Oximetry 100 Oxygen Delivery Method MDM - Nausea/Vomiting/Diarrhea <Wilda King PA-C - Last Filed: 12/18/22 10:41> Lab Data 12/16/22 15:27 12/16/22 15:27 Labs: Lab Results 12/16/22 12/16/22 12/16/22 Range/Units 15:08 15:27 15:27 WBC 4.9 (4.5-11.0) X10^3/uL RBC 4.68 (4.0-5.2) X10^6/uL Hgb 15.0 (12.0-16.0) g/dL Hct 42.9 (36-46) % MCV 91.8 (80-100) fL MCH 32.0 (26-34) PG MCHC 34.8 (30-36) % RDW 13.2 (11.6-14.8) % Plt Count 202 (150-400) X10^3/uL Neut % (Auto) 81.9 H (50-75) % Lymph % (Auto) 7.0 L (25-40) % Warren % (Auto) 10.8 (3-14) % Eos % (Auto) 0.2 L (2-4) % Baso % (Auto) 0.1 (0-2) % Neut # (Auto) 4000 (0873-6212) /uL Lymph # (Auto) 300 L (4805-5259) /uL Warren # (Auto) 500 (0-900) /uL Eos # (Auto) 0 (0-450) /uL Baso # (Auto) 0 (0-100) /uL Sodium 135 L (137-145) mmol/L Potassium 3.8 (3.4-5.1) mmol/L Chloride 102 (98-107) mmol/L Carbon Dioxide 22 (22-32) mmol/L BUN 12 (7-17) mg/dL Creatinine 0.81 (0.52-1.04) mg/dL Estimated GFR > 60 (>60) mL/min BUN/Creatinine Ratio 14.8 (6-22) Glucose 89 (70-100) mg/dL Calcium 9.1 (8.4-10.2) mg/dL Total Bilirubin 0.5 (0.2-1.3) mg/dL AST 56 H (14-36) IU/L ALT 56 H (<35) IU/L Alkaline Phosphatase 65 (38-126) U/L Total Protein 7.7 (6.3-8.2) g/dL Albumin 4.4 (3.5-5.0) g/dL Globulin 3.3 (1.7-4.1) g/dL Albumin/Globulin Ratio 1.3 (1.0-2.8) Lipase 51 (23-300) U/L Urine Color Yellow Urine Appearance Sl cloudy Urine pH 5.5 (4.5-8.0) Ur Specific [place] >=1.030 H (1.000-1.035) Urine Protein Trace H (Negative) Urine Glucose (UA) Negative (Negative) g/dL Urine Ketones 1+ H (NEGATIVE) Urine Occult Blood Negative (Negative) Urine Nitrate Negative (Negative) Urine Bilirubin 1+ H (NEGATIVE) Ur Bilirubin Confirm Negative (Negative) Urine Urobilinogen 0.2 (0.2) E.U./dL Ur Leukocyte Esterase Negative (NEGATIVE) Urine RBC 0-1/hpf (0-5/HPF) Urine WBC 1-5/hpf (0-5/HPF) Ur Squamous Epith Cells 5-10 /hpf H (0-5/HPF) Amorphous Sediment 2+ Urine Bacteria Moderate (10-30) H (None) Urine Mucus 1+ H (Negative) Ur Culture Indicated? Specimen cultured Point of Care Testing Test Results Negative Urine Dip Bedside Urine Glucose Negative Bedside Urine Bilirubin - Negative Bedside Urine Ketone + 15 Urine Specific [place] 1.030 Bedside Urine Occult Blood - Negative Bedside Urine pH 6.0 Bedside Urine Protein + 30 Bedside Urine Urobilinogen - Negative Bedside Urine Nitrite - Negative Bedside Urine Leukocytes - Negative Esterase Imaging Data CT scan - abdomen/pelvis: Radiologist's Impression: PROCEDURE:? CT ABDOMEN PELVIS W CON ? INDICATIONS:? Abdominal pain ? TECHNIQUE:? After the administration of IV contrast, axial sections were acquired from the lung bases to the pubic symphysis.? Coronal and sagittal reformats were performed.? For radiation dose reduction, the following was used:? automated exposure control, adjustment of mA and/or kV according to patient size. ? COMPARISON:? None. ? FINDINGS:? Image quality:? Excellent.? ? Lung bases:? Unremarkable.? ? Heart:? No significant findings. ? ? ABDOMEN: Liver:? Unremarkable.? ? Gallbladder:? Unremarkable.? ? Biliary ducts:? Unremarkable.? ? Pancreas:? Unremarkable.? ? Spleen:? Unremarkable.? ? Adrenal Glands:? Unremarkable.? ? Kidneys and Ureters:? Unremarkable.? ? ? Stomach and Bowel:? Stomach, small bowel loops, and colon are unremarkable.? No appendix (either normal or abnormal) is identified on this study.? Peritoneum:? No abnormal intraperitoneal fluid.? No free air.? ? Ventral Wall: ? No hernia.? Abdominal Nodes:? No retroperitoneal or mesenteric adenopathy by size criteria.? Vessels:? Aorta and inferior vena cava are normal in size.? ? PELVIS: Pelvic Organs: The uterus appears normal for age.? On the left, there is an apparent left ovarian hemorrhagic cyst, as on series 2 image 72 measuring up to 2.6 cm. Bladder:? Unremarkable.? ? Pelvic Nodes: No enlarged lymph nodes.? Miscellaneous: No inguinal hernias are seen. ? ? ? Bones:? Unremarkable.? IMPRESSION:? ? There is an apparent left ovarian hemorrhagic cyst seen measuring 2.6 cm.? If clinically appropriate, please consider short-term follow-up pelvic ultrasound.? ? No appendix (either normal or abnormal) is identified on this study.? ? ? Dictated by: Al Vicente M.D. on 12/16/2022 at 15:26 ? ? Approved by: Al Vicente M.D. on 12/16/2022 at 15:29 ? MDM Narrative Medical decision making narrative: CC: This is a new problem, uncertain diagnosis possible systemic effects Complicating co-morbidities: Previous PID, frequent workup for urinary dysuria and vaginal discomfort the last 3 months Corroborating data: Data collected from: patient, Social determinants of health that may influence the patients condition: Medical records reviewed: Previous ER visits evaluating PID, urine Gabriella dysuria Differential considered: Appendicitis, cholecystitis, TID complication, UTI, viral gastroenteritis Exam documented above, pertinent findings include: Lab Test results independently reviewed as above. Pertinent findings: Independently reviewed EKG as above Imaging studies independently reviewed: Consultations: Treatments: 1 L normal saline administered via IV, 15 mg of IV Toradol administered. 4 mg Zofran given by mouth. Re-evaluations: After saline, Zofran, and Toradol, patient reports feeling much better. She says that her lower back pain improved as well as her abdominal pain. Abdominal exam is nontender to palpation on exam. Discussion: Discussed with patient finding right-sided ovarian cyst on CT which is 2.6 cm. I recommend that she follow up with cheese cook to discuss parameters for monitoring. I believe that this would also be garcia given her recent history of PID. As CT was negative, we discussed that the source of her diarrhea and nausea may be due simply to a viral gastroenteritis. I recommend that she treat with plenty of fluids. To help with the pain she described in her lower back and shoulders, I recommend naproxen twice a day. We did discuss that she should not add ibuprofen on top of this. I recommend that if she experiences any upper abdominal pain at all due to previous diagnosis of possible gastric ulcer vs. GERD, that she stop this treatment. She reports she did handle ibuprofen without any abdominal pain at home, Disposition: see below, along with detailed discharge instructions that have been reviewed with patient as well as indications for ED re-evaluation and additional outpatient follow up <Mily Smith, - Last Filed: 12/20/22 07:02> Lab Data Labs: Lab Results 12/16/22 12/16/22 12/16/22 Range/Units 15:08 15:27 15:27 WBC 4.9 (4.5-11.0) X10^3/uL RBC 4.68 (4.0-5.2) X10^6/uL Hgb 15.0 (12.0-16.0) g/dL Hct 42.9 (36-46) % MCV 91.8 (80-100) fL MCH 32.0 (26-34) PG MCHC 34.8 (30-36) % RDW 13.2 (11.6-14.8) % Plt Count 202 (150-400) X10^3/uL Neut % (Auto) 81.9 H (50-75) % Lymph % (Auto) 7.0 L (25-40) % Warren % (Auto) 10.8 (3-14) % Eos % (Auto) 0.2 L (2-4) % Baso % (Auto) 0.1 (0-2) % Neut # (Auto) 4000 (9675-3116) /uL Lymph # (Auto) 300 L (2353-3908) /uL Warren # (Auto) 500 (0-900) /uL Eos # (Auto) 0 (0-450) /uL Baso # (Auto) 0 (0-100) /uL Sodium 135 L (137-145) mmol/L Potassium 3.8 (3.4-5.1) mmol/L Chloride 102 (98-107) mmol/L Carbon Dioxide 22 (22-32) mmol/L BUN 12 (7-17) mg/dL Creatinine 0.81 (0.52-1.04) mg/dL Estimated GFR > 60 (>60) mL/min BUN/Creatinine Ratio 14.8 (6-22) Glucose 89 (70-100) mg/dL Calcium 9.1 (8.4-10.2) mg/dL Total Bilirubin 0.5 (0.2-1.3) mg/dL AST 56 H (14-36) IU/L ALT 56 H (<35) IU/L Alkaline Phosphatase 65 (38-126) U/L Total Protein 7.7 (6.3-8.2) g/dL Albumin 4.4 (3.5-5.0) g/dL Globulin 3.3 (1.7-4.1) g/dL Albumin/Globulin Ratio 1.3 (1.0-2.8) Lipase 51 (23-300) U/L Urine Color Yellow Urine Appearance Sl cloudy Urine pH 5.5 (4.5-8.0) Ur Specific [place] >=1.030 H (1.000-1.035) Urine Protein Trace H (Negative) Urine Glucose (UA) Negative (Negative) g/dL Urine Ketones 1+ H (NEGATIVE) Urine Occult Blood Negative (Negative) Urine Nitrate Negative (Negative) Urine Bilirubin 1+ H (NEGATIVE) Ur Bilirubin Confirm Negative (Negative) Urine Urobilinogen 0.2 (0.2) E.U./dL Ur Leukocyte Esterase Negative (NEGATIVE) Urine RBC 0-1/hpf (0-5/HPF) Urine WBC 1-5/hpf (0-5/HPF) Ur Squamous Epith Cells 5-10 /hpf H (0-5/HPF) Amorphous Sediment 2+ Urine Bacteria Moderate (10-30) H (None) Urine Mucus 1+ H (Negative) Ur Culture Indicated? Specimen cultured Point of Care Testing Test Results Negative Urine Dip Bedside Urine Glucose Negative Bedside Urine Bilirubin - Negative Bedside Urine Ketone + 15 Urine Specific [place] 1.030 Bedside Urine Occult Blood - Negative Bedside Urine pH 6.0 Bedside Urine Protein + 30 Bedside Urine Urobilinogen - Negative Bedside Urine Nitrite - Negative Bedside Urine Leukocytes - Negative Esterase Discharge Plan Departure Patient Disposition: Home Clinical Impression: Gastroenteritis, Ovarian cyst Instructions: DI for Viral Gastroenteritis -- Adult Activity Restrictions/Additional Instructions: You were diagnosed today with gastroenteritis and an ovarian cyst. Your symptoms of diarrhea should improve over the next several days. If symptoms worsen or diarrhea becomes more frequent without improvement over the next several days and you are not able to stay hydrated, you may need to return to the emergency department for further evaluation. Regarding the ovarian cyst found on CT today, I recommend you follow up with an professor of environmental engineering to discuss parameters for further monitoring. I have prescribed Zofran for you to take to help with your nausea, and naproxen to help with your pain. Prescriptions: New naproxen 250 mg tablet 250 mg PO BID PRN (Reason: pain) Qty: 10 0RF Rx Instructions: Stop use if stomach pain occurs ondansetron 4 mg tablet,disintegrating 4 mg PO Q8H PRN (Reason: nausea and vomiting) Qty: 12 0RF No Action omeprazole 40 mg capsule,delayed release(DR/EC) 40 mg PO DAILY Qty: 30 0RF Referrals: Raegan Small ARNP [Primary Care Provider] - Stand Alone Forms: Patient Portal/API <Mily Smith DO - Last Filed: 12/20/22 07:02> Cosign ED Attending Cosignature Attestation: I was immediately available in the department for consultation. Documentation has been reviewed.
[2022-12-16] MEDS: ONDANSETRON 4 MG ODT SL (14:59)
[2022-12-16 15:00] VITALS: PULSE 92; O2SAT 98
[2022-12-16 15:20] LABS: Appearance Urine UA SL CLOUDY; Bilirubin Urine UA 1+ (NEGATIVE); Color Urine UA YELLOW; Glucose Urine UA NEGATIVE (Negative); Ketones Urine UA 1+ (NEGATIVE); Leukocyte Esterase Urine UA NEGATIVE (NEGATIVE); Nitrite Urine UA NEGATIVE (Negative); Occult Blood Urine UA NEGATIVE (Negative); Protein Urine UA TRACE (Negative); Specific Gravity Urine UA >=1.030 (1.000-1.035); Urobilinogen Urine UA 0.2 E.U./dL (0.2)
[2022-12-16 15:21] LABS: pH Urine UA 5.5 (4.5-8.0)
[2022-12-16 15:23] LABS: Ictotest Urine Negative (Negative)
--- NOTE | 2022-12-16 15:24 | DI.CT.S_ITS ---
PROCEDURE: CT ABDOMEN PELVIS W CON INDICATIONS: Abdominal pain TECHNIQUE: After the administration of IV contrast, axial sections were acquired from the lung bases to the pubic symphysis. Coronal and sagittal reformats were performed. For radiation dose reduction, the following was used: automated exposure control, adjustment of mA and/or kV according to patient size. COMPARISON: None. FINDINGS: Image quality: Excellent. Lung bases: Unremarkable. Heart: No significant findings. ABDOMEN: Liver: Unremarkable. Gallbladder: Unremarkable. Biliary ducts: Unremarkable. Pancreas: Unremarkable. Spleen: Unremarkable. Adrenal Glands: Unremarkable. Kidneys and Ureters: Unremarkable. Stomach and Bowel: Stomach, small bowel loops, and colon are unremarkable. No appendix (either normal or abnormal) is identified on this study. Peritoneum: No abnormal intraperitoneal fluid. No free air. Ventral Wall: No hernia. Abdominal Nodes: No retroperitoneal or mesenteric adenopathy by size criteria. Vessels: Aorta and inferior vena cava are normal in size. PELVIS: Pelvic Organs: The uterus appears normal for age. On the left, there is an apparent left ovarian hemorrhagic cyst, as on series 2 image 72 measuring up to 2.6 cm. Bladder: Unremarkable. Pelvic Nodes: No enlarged lymph nodes. Miscellaneous: No inguinal hernias are seen. Bones: Unremarkable. IMPRESSION: There is an apparent left ovarian hemorrhagic cyst seen measuring 2.6 cm. If clinically appropriate, please consider short-term follow-up pelvic ultrasound. No appendix (either normal or abnormal) is identified on this study. Dictated by: Al Vicente M.D. on 12/16/2022 at 15:26 Approved by: Al Vicente M.D. on 12/16/2022 at 15:29
[2022-12-16 15:27] LABS: Amorphous Sediment Urine 2+; Bacteria Urine Moderate (10-30); Culture Indicated Urine Specimen Cultured; Mucus Urine 1+ (Negative); RBC Urine 0-1/HPF (0-5/HPF); Squamous Epithelial Cell Urine 5-10 /HPF (0-5/HPF); WBC Urine 1-5/HPF (0-5/HPF)
[2022-12-16 15:30] VITALS: O2SAT 100
[2022-12-16 15:35] LABS: Add Manual Diff / Slide Review NO; Basophils Absolute Auto 0 /uL (0-100); Basophils Percent Auto 0.1 % (0-2); Eosinophils Absolute Auto 0 /uL (0-450); Eosinophils Percent Auto 0.2 % (2-4); Hematocrit 42.9 % (36-46); Lymphocytes Absolute Auto 300 /uL (1100-4500); Mean Corpuscular HGB Conc 34.8 % (30-36); Mean Corpuscular Volume 91.8 fL (80-100); Monocytes Absolute Auto 500 /uL (0-900); Monocytes Percent Auto 10.8 % (3-14); Neutrophils Absolute Auto 4000 /uL (1500-7000); Neutrophils Percent Auto 81.9 % (50-75); Platelet Count 202 X10^3/uL (150-400); Red Blood Cell Count 4.68 X10^6/uL (4.0-5.2); Red Cell Distribution Width 13.2 % (11.6-14.8); White Blood Cell Count 4.9 X10^3/uL (4.5-11.0)
[2022-12-16] MEDS: SODIUM CHLORIDE 0.9% 1,000 ML 1000 ML IV (15:46)
[2022-12-16] MEDS: KETOROLAC 30 MG/ML VIAL 15 MG IV (15:46)
[2022-12-16 15:50] LABS: Alanine Aminotransferase 56 IU/L (<35); Albumin 4.4 g/dL (3.5-5.0); Albumin Globulin Ratio 1.3 (1.0-2.8); Alkaline Phosphatase 65 U/L (38-126); Aspartate Aminotransferase 56 IU/L (14-36); BUN Creatinine Ratio 14.8 (6-22); Bilirubin Total 0.5 mg/dL (0.2-1.3); Blood Urea Nitrogen 12 mg/dL (7-17); Calcium 9.1 mg/dL (8.4-10.2); Carbon Dioxide 22 mmol/L (22-32); Chloride 102 mmol/L (98-107); Estimated Glomerular Filt Rate > 60 mL/min (>60); Globulin 3.3 g/dL (1.7-4.1); Glucose 89 mg/dL (70-100); HEMOLYSIS < 15 (0-50); Lipase 51 U/L (23-300); Potassium 3.8 mmol/L (3.4-5.1); Sodium 135 mmol/L (137-145); Total Protein 7.7 g/dL (6.3-8.2)
[2022-12-16 16:56] VITALS: BP 107/58; PULSE 85; O2SAT 100
== END 2022-12-16 17:18 | disposition home or self-care (01) ==
PROVIDERS: Emergency Provider Physician Assistant; PCP Nurse Practitioner Family
DX: K52.9 Noninfective gastroenteritis and colitis, unspecified (principal); N83.201 Unspecified ovarian cyst, right side
CPT/HCPCS: 74177; 80053; 81001; 81003; 81025; 83690; 85025; 87086; 96361; 96374; 99284; J1885

== ENCOUNTER 2024-04-04 15:06 | Emergency (ER) | payer OTHER, MEDICAID, SELFPAY ==
[2024-04-04 15:08] VITALS: BP 118/69; PULSE 91; RESP 16; TEMP 37.2; O2SAT 97; BMI 21.0
--- NOTE | 2024-04-04 15:39 | ED.EXTPRO ---
HPI - Extremity Problem <VINNY Oneil - Last Filed: 04/04/24 16:36> General Chief complaint: Extremity Problem,Nontraumatic Stated complaint: Rt arm px Time Seen by Provider: 04/04/24 15:26 Source: patient Mode of arrival: Family Vehicle History of Present Illness HPI Narrative: 23-year-old female, current some day smoker, presents to the emergency department with right upper arm pain x2 months. Patient denies any injury or extraneous use. Patient is concerned because her hand started to shake after using her right arm all day at a new job. Patient denies any numbness or tingling or increased pain with range of motion. Patient reports constant right upper arm pressure. Related Data Previous Rx's Medication Instructions Recorded omeprazole 40 mg capsule,delayed 40 mg PO DAILY #30 caps 12/07/22 release naproxen 250 mg tablet 250 mg PO BID PRN pain #10 tabs 12/16/22 ondansetron 4 mg disintegrating 4 mg PO Q8H PRN nausea and 12/16/22 tablet vomiting #12 tabs Allergies Allergy/AdvReac Type Severity Reaction Status Date / Time No Known Drug Allergies Allergy Verified 12/07/22 13:57 Review of Systems <VINNY Oneil - Last Filed: 04/04/24 16:36> Review of Systems Narrative: Narrative: See HPI. GENERAL: Denies chills, fatigue, fever, sweats. HEENT: Denies sinus pain, ear pain, sore throat, difficulty swallowing, dizziness. RESPIRATORY: Denies dyspnea, cough, wheezing, sputum. CARDIOVASCULAR: Denies chest pain, palpitations, edema. GASTROINTESTINAL: Denies nausea, vomiting, abdominal pain, diarrhea, constipation. : Denies dysuria, frequency, incontinence, hematuria, urinary retention, flank pain. MSK: Denies weakness, joint pain, or bony pain. Endorses right upper arm pressure/pain. SKIN: Denies rash, skin lesions, or pruritis. NEUROLOGIC: Denies weakness, dizziness, headache, numbness, confusion. PSYCHIATRIC: No concerning psychosocial issues. Patient History <VINNY Oneil - Last Filed: 04/04/24 16:36> Social History Smoking Status: Current some day smoker Smoking Status: Current some day smoker tobacco type: vaping alcohol intake frequency: holidays/special occasions only Substance Use Type: marijuana Exam <VINNY Oneil - Last Filed: 04/04/24 16:36> Narrative Exam Narrative: Exam Narrative: GENERAL: This is a well-nourished, well-developed patient, in no acute distress. HEAD: Atraumatic. Normocephalic. EYES: Pupils equal round and reactive. Extraocular motions intact. No scleral icterus, injection or drainage. ENT: Nose without bleeding, purulent drainage. Airway patent. NECK: Trachea midline. No JVD or lymphadenopathy. Nontender. CARDIOVASCULAR: Regular rate and rhythm without murmurs, peripheral pulses intact, cap refill <2 sec. RESPIRATORY: Breath sounds equal and clear bilaterally. No wheezes, rales, or rhonchi. No cough. No increased respiratory effort. No accessory muscle use. GASTROINTESTINAL: Abdomen soft, non-tender, nondistended without guarding or rebound. No suprapubic pain. MSK: Moves all extremities. Normal range of motion, no clubbing or edema. Neurovascularly intact. NEURO: A&O x 3. SKIN: Warm, dry, no rashes or lesions noted. Initial Vital Signs Initial Vital Signs: Vital Signs Temperature 98.9 F 04/04/24 15:08 Pulse Rate 91 H 04/04/24 15:08 Respiratory Rate 16 04/04/24 15:08 Blood Pressure 118/69 04/04/24 15:08 Pulse Oximetry 97 04/04/24 15:08 Oxygen Delivery Method Room Air 04/04/24 15:08 Reviewed <Francis Johnson DO - Last Filed: 04/04/24 16:42> Initial Vital Signs Initial Vital Signs: Vital Signs Temperature 98.9 F 04/04/24 15:08 Pulse Rate 91 H 04/04/24 15:08 Respiratory Rate 16 04/04/24 15:08 Blood Pressure 118/69 04/04/24 15:08 Pulse Oximetry 97 04/04/24 15:08 Oxygen Delivery Method Room Air 04/04/24 15:08 Course <VINNY Oneil - Last Filed: 04/04/24 16:36> Orders Ordered: ED Orders 04/04/24 15:38 US periph venous up extrem rt Stat Vital Signs Vital signs: Vital Signs - 8 hr 04/04/24 15:08 04/04/24 16:38 Temperature 98.9 F Pulse Rate 91 H 63 Respiratory Rate 16 16 Blood Pressure 118/69 116/65 Pulse Oximetry 97 100 Oxygen Delivery Method Room Air Room Air <Francis Johnson DO - Last Filed: 04/04/24 16:42> Orders Ordered: ED Orders 04/04/24 15:38 US periph venous up extrem rt Stat Vital Signs Vital signs: Vital Signs - 8 hr 04/04/24 15:08 04/04/24 16:38 Temperature 98.9 F Pulse Rate 91 H 63 Respiratory Rate 16 16 Blood Pressure 118/69 116/65 Pulse Oximetry 97 100 Oxygen Delivery Method Room Air Room Air MDM - Extremity (Nontraumatic) <VINNY Oneil - Last Filed: 04/04/24 16:36> Differential Diagnosis Differential diagnosis: Likely superficial thrombophlebitis, deep venous thrombosis of upper extremity and other (Neck strain) Imaging Data US - DVT: Radiologist's Impression: [place] [address] Ultrasound Report Signed Patient: Laurel Raphael MR#: [id number] : 2000 Acct:[id number] Age/Sex: 23 / F Date of Service: 04/04/24 Loc: ED Accession Number: [id number] Procedure: US periph venous up extrem rt Ordering Provider: Francis Martin PROCEDURE: US PERIPH VENOUS UP EXTREM RT INDICATIONS: Right upper arm pain TECHNIQUE: Real-time imaging, as well as color and pulse Doppler interrogation, was performed of the upper extremity deep veins from the inferior neck to the antecubital fossa. COMPARISON: None. FINDINGS: The internal jugular vein, visualized portions of the subclavian vein, axillary, and brachial veins are free of intraluminal thrombus. Where physically possible, the veins are normally compressible. Color and pulse Doppler demonstrate normal intraluminal flow, with expected phasicity and pulsatility. Additional scanning of the cephalic and basilic veins of the superficial system demonstrates normal compressibility, without thrombus. IMPRESSION: No findings of upper extremity deep venous thrombosis can be seen. Dictated by: Al Vicente M.D. on 04/04/2024 at 15:27 Approved by: Al Vicente M.D. on 04/04/2024 at 15:28 MDM Narrative Medical decision making narrative: 23-year-old female with right upper arm pain x2 months. Assessment was unremarkable and not sure why patient is having right upper arm pain. Increased tension right trapezius, but not overly concerning. Patient is concerned about a possible DVT. Even I have a low suspicion for this, will obtain a baseline ultrasound. Ultrasound was negative for DVT. Recommended upper body stretching and [id number] exercises. Recommended patient follow up with family doctor if symptoms persist as physical therapy may be necessary. Patient verbalized understanding and was agreeable to course of action. Discharge Plan Departure Patient Disposition: Home Clinical Impression: Arm pain, right Activity Restrictions/Additional Instructions: *You have been diagnosed with right arm discomfort. My assessment was encouraging I can not find any reason were right upper arm pain. The ultrasound was negative for a blood clot. I recommend range of motion stretching exercises and Tylenol or ibuprofen as needed for any discomfort. For any worsening symptoms that include intolerable pain, inability to use her arm, etc. please feel free to return to the emergency department. Otherwise, please follow-up with your family doctor as needed. *What to do: *Please continue to take your regular medications as directed. [ ] New medication prescriptions sent to your pharmacy: [ ] [ ] New medication written as a paper prescription [x ] No new medications given *Please follow up with your primary care provider in 2-3 days, call for an appointment. Let them know you were seen in the Emergency Department and that we ask that you be seen in follow up. We will electronically transmit a record of today's note if your PCP is in our system *If you do not have a primary care provider please contact the [facility] Resource line at [phone]. They will ask some questions about your medical history and help get you set up with a doctor in the community. ? Return to ER if you should have any new, worsening or concerning symptoms, such as worsening pain, severe headache, confusion, chest pain, difficulty breathing, fever greater than 101 F, shaking chills, persistent vomiting to the point that you cannot drink fluids, or other new or worsening symptoms. Prescriptions: No Action naproxen 250 mg tablet 250 mg PO BID PRN (Reason: pain) Qty: 10 0RF Rx Instructions: Stop use if stomach pain occurs ondansetron 4 mg tablet,disintegrating 4 mg PO Q8H PRN (Reason: nausea and vomiting) Qty: 12 0RF omeprazole 40 mg capsule,delayed release(DR/EC) 40 mg PO DAILY Qty: 30 0RF Referrals: Raegan Small, COMMUNITY ENGAGEMENT MANAGER [Primary Care Provider] - Stand Alone Forms: Patient Portal/API ED Sign-out <Francis Johnson, - Last Filed: 04/04/24 16:42> Cosign ED Attending Cosignature Attestation: Dr Johnson Co-Sign Statement: I was available for consultation during this patient's emergency department visit. This chart is signed by myself for administrative purposes only. I did not have direct contact with this patient during this visit. They were seen independently by the APC.
[2024-04-04 16:38] VITALS: BP 116/65; PULSE 63; RESP 16; O2SAT 100
== END 2024-04-04 16:38 | disposition home or self-care (01) ==
PROVIDERS: Emergency Provider Registered Nurse; PCP Nurse Practitioner Family
DX: M79.621 Pain in right upper arm (principal)
CPT/HCPCS: 93971; 99281; 99282

== ENCOUNTER 2024-06-15 17:22 | Emergency (ER) | payer OTHER, MEDICAID, SELFPAY ==
[2024-06-15 17:25] VITALS: BP 120/66; PULSE 77; RESP 16; TEMP 37.2; O2SAT 99; BMI 21.9
--- NOTE | 2024-06-15 20:18 | PC.NURSE ---
Pt laying back in [place]. States that her lymph nodes are swollen and that she gets chills which radiate over entire body. States that she gets transient pain all over body and hurts when she touches her skin.
--- NOTE | 2024-06-15 21:07 | ED.RECABL ---
HPI - Recheck/Abnormal Lab/Rx General Chief Complaint: Recheck/Abnormal Lab/Rx Stated Complaint: swollen and painfull lymph nodes, Migraines Time Seen by Provider: 06/15/24 21:07 Source: patient Mode of arrival: Family Vehicle History of Present Illness HPI narrative: 23-year-old female complains of 8 months duration of neck pain, feels that her nodes are swollen, has intermittent pain bilateral neck. For this problem she has had strep screening negative, Monospot testing negative, has seen a otolaryngology specialist no specific diagnosis. She is not having any dental pain or dental surgery your tooth pain problems. No known thyroid problems. No history of lymphoma. No lymph nodes enlarged elsewhere. She is wanting imaging of her neck. Related Data Previous Rx's Medication Instructions Recorded omeprazole 40 mg capsule,delayed 40 mg PO DAILY #30 caps 12/07/22 release naproxen 250 mg tablet 250 mg PO BID PRN pain #10 tabs 12/16/22 ondansetron 4 mg disintegrating 4 mg PO Q8H PRN nausea and 12/16/22 tablet vomiting #12 tabs Allergies Allergy/AdvReac Type Severity Reaction Status Date / Time No Known Drug Allergies Allergy Verified 12/07/22 13:57 Review of Systems Review of Systems Narrative: see HPI Patient History Social History Smoking Status: Current some day smoker Smoking Status: Current some day smoker tobacco type: vaping alcohol intake frequency: holidays/special occasions only Substance Use Type: marijuana Exam Narrative Exam Narrative: GENERAL: Well-developed patient, in mild distress. HEAD: Atraumatic. Normocephalic. EYES: Pupils equal round and reactive. Extraocular motions intact. No scleral icterus. No injection or drainage. ENT: Nose without bleeding, purulent drainage. Throat without erythema, tonsillar hypertrophy or exudate. Airway patent. Shotty anterior cervical lymphadenopathy, not particularly enlarged, no dominant large node/mass, neck appears symmetrical, not particularly tender, no associated erythema, moves neck well, no drool, no trismus. Oropharyngeal exam unremarkable. NECK: Trachea midline. Non tender CARDIOVASCULAR: Regular rate and rhythm without murmurs, gallops, or rubs. RESPIRATORY: Clear to auscultation. Breath sounds equal bilaterally. No wheezes, rales, or rhonchi. GASTROINTESTINAL: Abdomen soft, non-tender, nondistended. EXTREMITIES: No edema or joint tenderness. BACK: Nontender without deformity or crepitance. No flank tenderness. NEURO: AOx3. Motor functions grossly normal SKIN: No rash or erythema of visible areas Initial Vital Signs Initial Vital Signs: Vital Signs Temperature 98.9 F 06/15/24 17:25 Pulse Rate 77 06/15/24 17:25 Respiratory Rate 16 06/15/24 17:25 Blood Pressure 120/66 06/15/24 17:25 Pulse Oximetry 99 06/15/24 17:25 Oxygen Delivery Method Room Air 06/15/24 17:25 Course Orders Ordered: ED Orders 06/15/24 21:15 CT soft tissue neck w con Stat 06/15/24 21:30 CBC Auto Diff [Complete Blood Count AUTO DIFF] Stat CMP [Comprehensive Metabolic Panel] Stat HIV 1 & 2 Ab/Ag 4th Gen Combo Stat Vital Signs Vital signs: Vital Signs - 8 hr 06/15/24 21:46 06/15/24 22:46 Pulse Rate 75 75 Respiratory Rate 16 18 Blood Pressure 134/85 132/78 Pulse Oximetry 98 98 Oxygen Delivery Method Room Air Room Air MDM - Recheck/Abnormal Lab/Rx Lab Data 06/15/24 21:30 06/15/24 21:30 Labs: Lab Results 06/15/24 Range/Units 21:30 WBC 6.8 (4.5-11.0) X10^3/uL RBC 4.35 (4.0-5.2) X10^6/uL Hgb 14.0 (12.0-16.0) g/dL Hct 41.1 (36-46) % MCV 94.6 (80-100) fL MCH 32.2 (26-34) PG MCHC 34.0 (30-36) % RDW 12.4 (11.6-14.8) % Plt Count 234 (150-400) X10^3/uL Neut % (Auto) 57.7 (50-75) % Lymph % (Auto) 29.6 (25-40) % [place] % (Auto) 10.1 (3-14) % Eos % (Auto) 1.7 L (2-4) % Baso % (Auto) 0.9 (0-2) % Neut # (Auto) 3900 (5316-7322) /uL Lymph # (Auto) 2000 (0139-7919) /uL [place] # (Auto) 700 (0-900) /uL Eos # (Auto) 100 (0-450) /uL Baso # (Auto) 100 (0-100) /uL Sodium 140 (137-145) mmol/L Potassium 3.5 (3.4-5.1) mmol/L Chloride 108 H (98-107) mmol/L Carbon Dioxide 23 (22-32) mmol/L BUN 8 (7-17) mg/dL Creatinine 0.70 (0.52-1.04) mg/dL Estimated GFR > 60 (>60) mL/min BUN/Creatinine Ratio 11.4 (6-22) Glucose 94 (70-100) mg/dL Calcium 9.3 (8.4-10.2) mg/dL Total Bilirubin 0.6 (0.2-1.3) mg/dL AST 23 (14-36) IU/L ALT 15 (<35) IU/L Alkaline Phosphatase 60 (38-126) U/L Total Protein 7.4 (6.3-8.2) g/dL Albumin 4.5 (3.5-5.0) g/dL Globulin 2.9 (1.7-4.1) g/dL Albumin/Globulin Ratio 1.6 (1.0-2.8) HIV 1&2 Ab/P24 Ag 4thGn Negative (NEGATIVE) MDM Narrative Medical decision making narrative: 23-year-old female with ongoing anterior neck swelling lymph node problems, seems frustrated at lack of any diagnosis, requesting imaging. Apparently she has had prior strep testing, Monospot, physical exam otolaryngology consultation, without any specific diagnosis. Other lymph nodes of concern. She is requesting imaging study. CBC pending. CT soft tissue neck with IV contrast ordered. CBC unremarkable CT soft tissue neck shows reactive anterior cervical chain lymphadenopathy, no unusual other lesions. Report given to patient Follow up as an outpatient Discharge Plan Departure Patient Disposition: Home Clinical Impression: Cervical lymphadenopathy Activity Restrictions/Additional Instructions: Concern for chronic lymph node enlargement of your neck, and intermittent neck discomfort. Request for imaging. CT soft tissue neck with IV contrast was performed, there is bilateral small cervical lymph nodes present. None appear to be neoplastic or cancerous or unusual otherwise in nature. There were no other lesions noted. Follow up with Otolaryngology as needed. Contact information provided. Prescriptions: No Action naproxen 250 mg tablet 250 mg PO BID PRN (Reason: pain) Qty: 10 0RF Rx Instructions: Stop use if stomach pain occurs ondansetron 4 mg tablet,disintegrating 4 mg PO Q8H PRN (Reason: nausea and vomiting) Qty: 12 0RF omeprazole 40 mg capsule,delayed release(DR/EC) 40 mg PO DAILY Qty: 30 0RF Referrals: Solo Mckeon MD [Physician] - Raegan Small ARNP [Primary Care Provider] - Stand Alone Forms: Patient Portal/API
--- NOTE | 2024-06-15 21:15 | DI.CT.S_ITS ---
PROCEDURE: CT SOFT TISSUE NECK W CON INDICATIONS: neck pain, enlarged nodes concern TECHNIQUE: After the administration of intravenous contrast, 3.0 mm axial sections acquired from the sella to the aortic arch. Additional oblique axial 3.0 mm sections acquired through the pharynx. 3 mm thick coronal and sagittal reformats were generated. For radiation dose reduction, the following was used: automated exposure control. COMPARISON: None. FINDINGS: Image quality: Excellent. Lymph nodes: No enlarged lymph nodes seen throughout the neck. Prominent bilateral cervical chain lymph nodes. Vessels: Visualized vasculature appears patent. Neck spaces: The oropharynx, nasopharynx, and pharynx demonstrate no mucosal lesions. The vocal cords, false vocal cords, pyriform sinuses, epiglottis, vallecula, and tongue base all appear normal. Extramucosal spaces appear unremarkable. Glands: The parotid and submandibular glands appear normal. Thyroid gland is unremarkable. Miscellaneous: Visualized brain and orbits appear normal. Lung apices appear clear. Superficial soft tissues appear normal. Bones: No suspicious bony lesions. Visualized sinuses and mastoids appear unremarkable. IMPRESSION: Prominent bilateral cervical chain lymph nodes, probably reactive. No tonsillar abscess or peritonsillar abscess. Dictated by: Mansoor Parsons M.D. on 06/15/2024 at 22:24 Approved by: Mansoor Parsons M.D. on 06/15/2024 at 22:27
[2024-06-15 21:46] VITALS: BP 134/85; PULSE 75; RESP 16; O2SAT 98
[2024-06-15 21:46] LABS: Add Manual Diff / Slide Review NO; Basophils Absolute Auto 100 /uL (0-100); Basophils Percent Auto 0.9 % (0-2); Eosinophils Absolute Auto 100 /uL (0-450); Eosinophils Percent Auto 1.7 % (2-4); Hematocrit 41.1 % (36-46); Lymphocytes Absolute Auto 2000 /uL (1100-4500); Lymphocytes Percent Auto 29.6 % (25-40); Mean Corpuscular Hemoglobin 32.2 PG (26-34); Mean Corpuscular Volume 94.6 fL (80-100); Monocytes Absolute Auto 700 /uL (0-900); Monocytes Percent Auto 10.1 % (3-14); Neutrophils Absolute Auto 3900 /uL (1500-7000); Neutrophils Percent Auto 57.7 % (50-75); Platelet Count 234 X10^3/uL (150-400); Red Blood Cell Count 4.35 X10^6/uL (4.0-5.2); Red Cell Distribution Width 12.4 % (11.6-14.8); White Blood Cell Count 6.8 X10^3/uL (4.5-11.0)
[2024-06-15 22:00] LABS: Alanine Aminotransferase 15 IU/L (<35); Albumin 4.5 g/dL (3.5-5.0); Albumin Globulin Ratio 1.6 (1.0-2.8); Alkaline Phosphatase 60 U/L (38-126); Aspartate Aminotransferase 23 IU/L (14-36); BUN Creatinine Ratio 11.4 (6-22); Bilirubin Total 0.6 mg/dL (0.2-1.3); Blood Urea Nitrogen 8 mg/dL (7-17); Calcium 9.3 mg/dL (8.4-10.2); Carbon Dioxide 23 mmol/L (22-32); Chloride 108 mmol/L (98-107); Estimated Glomerular Filt Rate > 60 mL/min (>60); Globulin 2.9 g/dL (1.7-4.1); Glucose 94 mg/dL (70-100); HEMOLYSIS < 15 (0-50); Potassium 3.5 mmol/L (3.4-5.1); Sodium 140 mmol/L (137-145); Total Protein 7.4 g/dL (6.3-8.2)
[2024-06-15 22:46] VITALS: BP 132/78; PULSE 75; RESP 18; O2SAT 98
[2024-06-15 22:59] LABS: HIV 1 & 2 Ab/Ag 4th Gen Combo NEGATIVE (NEGATIVE)
== END 2024-06-15 22:42 | disposition home or self-care (01) ==
PROVIDERS: Emergency Provider Emergency Medicine; PCP Nurse Practitioner Family
DX: R59.0 Localized enlarged lymph nodes (principal)
CPT/HCPCS: 36415; 70491; 80053; 85025; 87389; 99281; 99284; Q9967